=== PATIENT | male | born 1950 | race Caucasian/White ===

== ENCOUNTER → 2017-07-07 | Outpatient (CLI) | payer MEDICARE, OTHER ==
--- NOTE | 2017-07-07 12:59 | RADIOLOGY IMAGING REPORT ---
FAC[place] [facility] [place]IENT NAME: Alejandro Ordonez : 1950 MR: [id number] V: [id number] EXAM DATE: ORDERING PHYSICIAN: BHUMIKA SUH TECHNOLOGIST: Location: [facility] Patient: Alejandro Ordonez : 1950 Visit/Account:[id number] Date of Sevice: 07/07/2017 Exam type: ORBITS FOREIGN BODY 1 VIEW History: Pre-MRI screening Comparison: None. Findings: No radiopaque metallic foreign bodies project over the orbits IMPRESSION: 1. No radiopaque metallic foreign bodies project over the orbits Report Dictated By: Lashell Fletcher MD at 07/07/2017 12:54 PM Report E-Signed By: Lashell Fletcher MD at 07/07/2017 12:55 PM WSN:[email or web address]
--- NOTE | 2017-07-07 13:32 | RADIOLOGY IMAGING REPORT ---
FACILITY: [facility] - [place] PATIENT NAME: Alejandro Ordonez : 1950 MR: [id number] V: [id number] EXAM DATE: ORDERING PHYSICIAN: BHUMIKA SUH TECHNOLOGIST: Location: [facility] - [place] Patient: Alejandro Ordonez : 1950 Visit/Account:[id number] Date of Sevice: 07/07/2017 EXAMINATION: Brain MRI without IV contrast History: Short-term memory loss for 30 years. COMPARISON STUDIES: none TECHNIQUE: Multi-planar, multi-sequence brain MRI was performed without IV contrast administration. FINDINGS: Paranasal sinuses / mastoid air cells: negative White matter: A few punctate foci of T2 hyperintense signal in the white matter nonspecific and withi n the range of normal for age. Ventricles / sulci / fissures: negative Masses / hemorrhage / midline shift: negative Extra-axial spaces: negative Calvarium and scalp: negative Vascular structures: negative Sagittal midline structures: negative Orbits: negative Visualized upper neck: negative IMPRESSION: Normal MRI of the brain for the patient's age. No evidence of a mass, acute ischemia or hemorrhage. Report Dictated By: Bandar Whipple MD at 07/07/2017 1:25 PM Report E-Signed By: Bandar Whipple MD at 07/07/2017 1:28 PM WSN:[id number]
== END ==
LOC: MRI 12:11
PROVIDERS: ATTEND Specialist
DX: R41.3 Other amnesia (principal)
CPT/HCPCS: 70030; 70551